=== PATIENT | male | born 1935 | race Caucasian/White ===

== ENCOUNTER 2017-11-02 18:09 | Emergency (ER) | payer MEDICARE, BC ==
[~2017-11-02] VITALS: Ht 180.3 cm; Wt 96.0 kg
[~2017-11-02 18:09] MED LIST: ASPI-1265 PO; ATOR40TA71 PO; CLOP75TA33 PO; DULO60CA45 PO; HYDR-3965 PO; LISI10TA4 PO; OMEG1CAP54 PO; PANT-47 PO; SENN-161 PO; SUMA25TA35 PO; TAMS0.4C32 PO; VIT1CAPS9 PO
[2017-11-02 18:47] LABS: BASOPHILS # (AUTO) 0.1 X10'3 (0-0.2); BASOPHILS % (AUTO) 0.7 % (0-1); EOSINOPHILS # (AUTO) 1.3 X10'3 (0-0.9); EOSINOPHILS % (AUTO) 10.9 % (0-6); HEMATOCRIT 47.4 % (42.0-52.0); LYMPHOCYTES # (AUTO) 1.7 X10'3 (1.1-4.8); LYMPHOCYTES % (AUTO) 13.7 % (21-51); MEAN CORPUSCULAR HEMOGLOBIN 29.1 PG (27.0-31.0); MEAN CORPUSCULAR HGB CONC 33.8 % (33.0-36.5); MEAN CORPUSCULAR VOLUME 86.2 FL (78-98); MEAN PLATELET VOLUME 6.2 FL (7.4-10.4); MONOCYTES # (AUTO) 0.7 X10'3 (0-0.9); NEUTROPHILS # (AUTO) 8.5 X10'3 (1.8-7.7); NEUTROPHILS % (AUTO) 68.7 % (42-75); PLATELET COUNT 413 X10'3 (140-440); RED CELL DISTRIBUTION WIDTH 14.7 % (11.5-14.5); WHITE BLOOD COUNT 12.3 X10'3 (4.5-11.0)
[2017-11-02] MEDS ORDERED: FAMO-129 (18:49)
[2017-11-02] MEDS ORDERED: METF500T PO (18:49)
[2017-11-02 18:56] LABS: PROTHROMBIN TIME 9.9 SECONDS (9.0-12.0)
[2017-11-02 19:00] LABS: ALANINE AMINOTRANSFERASE 36 U/L (12-78); ALBUMIN 3.9 G/DL (3.4-5.0); ALBUMIN/GLOBULIN RATIO 0.8 (1.1-1.5); ALKALINE PHOSPHATASE 107 IU/L (46-116); ANION GAP 10 (8-16); ASPARTATE AMINO TRANSFERASE 31 U/L (10-37); BILIRUBIN,TOTAL 0.7 MG/DL (0.1-1.0); BLOOD UREA NITROGEN 14 MG/DL (7-18); BUN/CREATININE RATIO 13.7 (5.4-32.0); CALCIUM 10.5 MG/DL (8.5-10.1); CHLORIDE 101 MMOL/L (99-107); CREATININE 1.02 MG/DL (0.60-1.10); GLUCOSE 114 MG/DL (70-104); POTASSIUM 3.9 MMOL/L (3.5-5.1); SODIUM 136 MMOL/L (135-145); TOTAL CARBON DIOXIDE 25.4 MMOL/L (24-32); TOTAL PROTEIN 8.6 G/DL (6.4-8.2); eGFR 70 ML/MIN
[2017-11-02] MEDS ORDERED: famotidine/PF 10 mg/ml inj IV ONE (20:15)
[2017-11-02] MEDS ORDERED: morphine 4 MG/ML inj SYRINge IV ONE (20:15)
[2017-11-02] MEDS ORDERED: normal saline 1000ML IV soln IVB ONE (20:15)
[2017-11-02 20:33] LABS: LIPASE 97 U/L (73-393)
[2017-11-02 20:42] LABS: CLARITY,URINE CLEAR (Clear); COLOR,URINE YELLOW (Yellow); GLUCOSE, URINE NEGATIVE (Neg); KETONES,URINE NEGATIVE (Neg); LEUKOCYTE ESTERASE ,URINE NEGATIVE (Neg); NITRITES, URINE NEGATIVE (Neg); OCCULT BLOOD,URINE NEGATIVE (Neg); PROTEIN,URINE NEGATIVE (Neg); UROBILINOGEN,URINE 0.2 E.U/dL (0.2-1.0)
[2017-11-02 20:43] LABS: UA COLLECTION TYPE CLN CATCH MIDSTREAM
[2017-11-02] MEDS ORDERED: iohexol 300mg/ml 100ml inj. ONE (22:06)
[2017-11-02] MEDS ORDERED: PANT-47 PO (23:40)
[2017-11-03 00:12] VITALS: BP 150/98
== END 2017-11-03 00:10 | disposition home or self-care (01) ==
LOC: ER 18:10
DX: K29.00 Acute gastritis without bleeding (principal); K59.00 Constipation, unspecified; G43.909 Migraine, unspecified, not intractable, without status migrainosus; E11.9 Type 2 diabetes mellitus without complications; Z88.8 Allergy status to other drugs, medicaments and biological substances; Z79.82 Long term (current) use of aspirin; Z79.899 Other long term (current) drug therapy; Z79.84 Long term (current) use of oral hypoglycemic drugs; Z87.891 Personal history of nicotine dependence
CPT/HCPCS: 36415; 74022; 74177; 80053; 81003; 85025; 85610; 96361; 96374; 96375; 99285; J2270; J3490; J7030; Q9967; 83690

== ENCOUNTER 2019-09-20 08:24 | Day surgery (SDC) | payer MEDICARE, BC ==
[2019-09-20] VITALS (12 sets, daily range): BP systolic 137–164; BP diastolic 53–87
[~2019-09-20] VITALS: Ht 180.3 cm; Wt 98.5 kg
[~2019-09-20 08:24] MED LIST changes: +FAMO-129 PO; -HYDR-3965 PO; +METF-900 PO; -PANT-47 PO; -SENN-161 PO; -SUMA25TA35 PO; -TAMS0.4C32 PO
[2019-09-20] MEDS ORDERED: ASPI-144 (09:22)
[2019-09-20] MEDS ORDERED: normal saline 1000ml 1,000 ML IV SCH (09:58)
[2019-09-20 10:12] LABS: BASOPHILS # (AUTO) 0.1 X10'3 (0-0.2); BASOPHILS % (AUTO) 1.1 % (0-1); HEMATOCRIT 43.8 % (42.0-52.0); HEMOGLOBIN 14.3 g/dl (14.0-17.9); LYMPHOCYTES # (AUTO) 1.4 X10'3 (1.1-4.8); LYMPHOCYTES % (AUTO) 18.2 % (21-51); MEAN CORPUSCULAR HEMOGLOBIN 28.7 PG (27.0-31.0); MEAN CORPUSCULAR HGB CONC 32.6 g/dL (33.0-36.5); MEAN CORPUSCULAR VOLUME 87.9 FL (78-98); MEAN PLATELET VOLUME 7.2 FL (7.4-10.4); MONOCYTES # (AUTO) 0.6 X10'3 (0-0.9); MONOCYTES % (AUTO) 8.2 % (2-12); NEUTROPHILS # (AUTO) 4.5 X10'3 (1.8-7.7); NEUTROPHILS % (AUTO) 59.5 % (42-75); PLATELET COUNT 240 X10'3 (140-440); RED BLOOD COUNT 4.98 X10'6 (4.70-6.10); RED CELL DISTRIBUTION WIDTH 14.6 % (11.5-14.5); WHITE BLOOD COUNT 7.6 X10'3 (4.5-11.0)
== END 2019-09-20 14:00 | disposition home or self-care (01) ==
LOC: SSTAY O 08:24
PROVIDERS: ATTEND Radiology Diagnostic Radiology
DX: K75.81 Nonalcoholic steatohepatitis (NASH) (principal); F41.9 Anxiety disorder, unspecified; F32.9 Major depressive disorder, single episode, unspecified; E11.9 Type 2 diabetes mellitus without complications; N40.0 Benign prostatic hyperplasia without lower urinary tract symptoms; E78.5 Hyperlipidemia, unspecified; I10 Essential (primary) hypertension; G43.909 Migraine, unspecified, not intractable, without status migrainosus; G47.33 Obstructive sleep apnea (adult) (pediatric); Z86.73 Personal history of transient ischemic attack (TIA), and cerebral infarction without residual deficits; Z79.82 Long term (current) use of aspirin; Z79.84 Long term (current) use of oral hypoglycemic drugs; Z79.899 Other long term (current) drug therapy; Z88.8 Allergy status to other drugs, medicaments and biological substances; Z98.890 Other specified postprocedural states; Z87.891 Personal history of nicotine dependence; Z11.59 Encounter for screening for other viral diseases
CPT/HCPCS: 36415; 47000; 76942; 82948; 85025; 85610; U0003

== ENCOUNTER 2020-06-21 06:10 | Emergency (ER) | payer MEDICARE, BC ==
[~2020-06-21] VITALS: Ht 180.3 cm; Wt 109.1 kg
[~2020-06-21 06:10] MED LIST changes: +ASPI-144; +LISI10TA27 PO; -LISI10TA4 PO
[2020-06-21 06:16] VITALS: BP 188/93
[2020-06-21] MEDS ORDERED: proCHLORperazine 10 MG/2 ml inj IV PRN ×2 (06:45→07:25)
[2020-06-21] MEDS ORDERED: acetaminophen 325mg tablet PO ONE (06:45)
[2020-06-21] MEDS ORDERED: normal saline 1000ml 1,000 ML IV ONE (06:45)
[2020-06-21 07:24] LABS: CLARITY,URINE CLEAR (Clear); COLOR,URINE YELLOW (Yellow); GLUCOSE, URINE NEGATIVE (Neg); KETONES,URINE 15 mg/dl (Neg); LEUKOCYTE ESTERASE ,URINE TRACE (Neg); NITRITES, URINE NEGATIVE (Neg); OCCULT BLOOD,URINE NEGATIVE (Neg); PROTEIN,URINE NEGATIVE (Neg)
[2020-06-21] MEDS ORDERED: ketorolac tromethamine 15mg/ml inj. IV ONE (07:30)
[2020-06-21 07:31] LABS: UA COLLECTION TYPE CLN CATCH MIDSTREAM
[2020-06-21 07:32] LABS: BACTERIA,URINE FEW /HPF (Neg); MUCUS STRANDS NONE SEEN /LPF (Neg); SQUAMOUS EPITHELIAL CELL,UR FEW /LPF (FEW); WBC,URINE 0-4 /HPF (0-4)
[2020-06-21] MEDS ORDERED: diphenhydrAMINE 50 mg/ml inj IV ONE (07:45)
[2020-06-21] MEDS ORDERED: diphenhydrAMINE 50 mg/ml inj ONE (07:53)
== END 2020-06-21 09:22 | disposition home or self-care (01) ==
LOC: ER 06:11
DX: G43.909 Migraine, unspecified, not intractable, without status migrainosus (principal); K08.89 Other specified disorders of teeth and supporting structures; R53.1 Weakness; E11.9 Type 2 diabetes mellitus without complications; Z86.73 Personal history of transient ischemic attack (TIA), and cerebral infarction without residual deficits; Z98.890 Other specified postprocedural states; Z88.8 Allergy status to other drugs, medicaments and biological substances; Z79.82 Long term (current) use of aspirin; Z79.899 Other long term (current) drug therapy
CPT/HCPCS: 70450; 81001; 87088; 93005; 96361; 96374; 96375; 99285; J0780; J1200; J1885; J7030